=== PATIENT | male | born 1995 | race Caucasian/White ===

== ENCOUNTER 2017-12-09 17:33 | Emergency (ER) | payer OTHER, SELFPAY ==
--- NOTE | 2017-12-09 19:57 | EDPHYS ---
Physician Documentation [facility] Name: Steffen England Age: 22 yrs Sex: Male : 1995 Arrival Date: 12/09/2017 Time: 17:37 Bed 26 Private MD: None, None ED Physician Kirill Mcdonald HPI: 12/09 19:06 This 22 yrs old Male presents to ER via Ambulatory with complaints of Arm snw Pain. 19:06 The patient or guardian complains of pain, that is acute. The complaints affect the snw anterior aspect of right shoulder, right bicep, posterior aspect of right shoulder and right tricep. Context: The problem was sustained at an unknown location. Onset: The symptoms/episode began/occurred 3 day(s) ago, and became persistent. Modifying factors: the symptoms are aggravated by notices more problem on awakening. Associated signs and symptoms: Pertinent positives: aching pain to right shoulder and lower chest. Severity of symptoms: At their worst the symptoms were moderate. The patient has not experienced similar symptoms in the past. The patient has not recently seen a physician. Historical: - Allergies: 17:49 No Known Allergies; aa5 - PMHx: 17:49 None; aa5 - PSHx: 17:50 None; aa5 - Immunization history:: Adult Immunizations up to date. - Social history:: Smoking status: Patient uses tobacco products, denies chronic smoking, but will smoke occasionally. - Ebola Screening: : No symptoms or risks identified at this time. ROS: 19:01 Constitutional: Negative for fever, chills, and weight loss, Eyes: Negative for injury, snw pain, redness, and discharge, ENT: Negative for injury, pain, and discharge, Neck: Negative for injury, pain, and swelling, Respiratory: Negative for shortness of breath, cough, wheezing, and pleuritic chest pain, Abdomen/GI: Negative for abdominal pain, nausea, vomiting, diarrhea, and constipation, Back: Negative for injury and pain, : Negative for injury, bleeding, discharge, and swelling, Skin: Negative for injury, rash, and discoloration, Neuro: Negative for headache, weakness, numbness, tingling, and seizure. 19:01 Cardiovascular: Positive for chest pain. 19:01 MS/extremity: Positive for pain, paresthesias, swelling, of the from right scapular area around to and down right arm. Exam: 19:01 Constitutional: This is a well developed, well nourished patient who is awake, alert, snw and in no acute distress. Head/Face: Normocephalic, atraumatic. Eyes: Pupils equal round and reactive to light, extra-ocular motions intact. Lids and lashes normal. Conjunctiva and sclera are non-icteric and not injected. Cornea within normal limits. Periorbital areas with no swelling, redness, or edema. ENT: Nares patent. No nasal discharge, no septal abnormalities noted. Tympanic membranes are normal and external auditory canals are clear. Oropharynx with no redness, swelling, or masses, exudates, or evidence of obstruction, uvula midline. Mucous membranes moist. Neck: Trachea midline, no thyromegaly or masses palpated, and no cervical lymphadenopathy. Supple, full range of motion without nuchal rigidity, or vertebral point tenderness. No Meningismus. Chest/axilla: Normal chest wall appearance and motion. Nontender with no deformity. No lesions are appreciated. Cardiovascular: Regular rate and rhythm with a normal S1 and S2. No gallops, murmurs, or rubs. Normal PMI, no JVD. No pulse deficits. Respiratory: Lungs have equal breath sounds bilaterally, clear to auscultation and percussion. No rales, rhonchi or wheezes noted. No increased work of breathing, no retractions or nasal flaring. Abdomen/GI: Soft, non-tender, with normal bowel sounds. No distension or tympany. No guarding or rebound. No evidence of tenderness throughout. Back: No spinal tenderness. No costovertebral tenderness. Full range of motion. Skin: Warm, dry with normal turgor. Normal color with no rashes, no lesions, and no evidence of cellulitis. MS/ Extremity: Pulses equal, no cyanosis. Neurovascular intact. Full, normal range of motion. Neuro: Awake and alert, GCS 15, oriented to person, place, time, and situation. Cranial nerves II-XII grossly intact. Motor strength 5/5 in all extremities. Sensory grossly intact. Cerebellar exam normal. Normal gait. Vital Signs: 17:50 BP 130 / 60; Pulse 66; Resp 16 S; Temp 97.9(TE); Pulse Ox 100% on R/A; Weight 58.97 kg aa5 (R); Height 5 ft. 6 in. (167.64 cm) (R); Pain 6/10; 20:00 BP 116 / 75; Pulse 78; Resp 16; Pulse Ox 99% on R/A; rk2 17:50 Body Mass Index 20.98 (58.97 kg, 167.64 cm) aa5 MDM: 18:01 Patient medically screened. snw 19:57 Data reviewed: vital signs, nurses notes. Data interpreted: Pulse oximetry: on room air snw is 100 %. Interpretation: normal. Counseling: I had a detailed discussion with the patient and/or guardian regarding: the historical points, exam findings, and any diagnostic results supporting the discharge/admit diagnosis, radiology results, the need for outpatient follow up, to return to the emergency department if symptoms worsen or persist or if there are any questions or concerns that arise at home. Special discussion: Based on the history and exam findings, there is no indication for further emergent testing or inpatient evaluation. I discussed with the patient/guardian the need to see the primary care provider for further evaluation of the symptoms. 12/09 20:16 Order name: Urine Dipstick--Ancillary (enter results) rg2 12/09 18:01 Order name: Chest Pa And Lat (2 Views) XRAY; Complete Time: 20:15 snw 12/09 18:01 Order name: EKG; Complete Time: 18:02 snw 12/09 18:01 Order name: EKG - Nurse/Tech; Complete Time: 18:30 snw Administered Medications: 20:11 Drug: TORadol 60 mg Route: IM; Site: right deltoid; rk2 20:15 Follow up: Response: No adverse reaction; Given \T\ DC rk2 Disposition: 12/10 16:16 Co-signature as Attending Physician, Kirill Mcdonald MD I agree with the assessment and chet plan of care. Disposition: 12/09/17 19:56 Discharged to Home. Impression: Pain in right shoulder. - Condition is Stable. - Discharge Instructions: Arthralgia, Musculoskeletal Pain, Shoulder Pain, Cryotherapy, [id number], Heat Therapy. - Prescriptions for Diclofenac Sodium 75 mg Oral Tablet Sustained Release - take 1 tablet by ORAL route 2 times per day; 30 tablet. orphenadrine citrate 100 mg Oral Tablet Sustained Release - take 1 tablet by ORAL route 2 times per day As needed; 20 tablet. - Work release form, Medication Reconciliation Form, Thank You Letter, Antibiotic Education, Prescription Opioid Use form. - Follow up: Private Physician; When: 2 - 3 days; Reason: Recheck today's complaints, Continuance of care, Re-evaluation by your physician. Follow up: Emergency Department; When: As needed; Reason: Worsening of condition. Signatures: Dispatcher [employer] EDSC Kirill Mcdonald, Sophy Navarro MD, cha, JAMIL-C VETERINARY PATHOLOGIST-Solw Estela Thurston, RN RN aa5 Isabela Han RN RN rk2 Corrections: (The following items were deleted from the chart) 12/09 20:17 19:56 12/09/2017 19:56 Discharged to Home. Impression: Pain in right shoulder. rk2 Condition is Stable. Forms are Medication Reconciliation Form, Thank You Letter, Antibiotic Education, Prescription Opioid Use. Follow up: Private Physician; When: 2 - 3 days; Reason: Recheck today's complaints, Continuance of care, Re-evaluation by your physician. Follow up: Emergency Department; When: As needed; Reason: Worsening of condition. snw
--- NOTE | 2017-12-09 19:57 | ER ---
Nurse's Notes [facility] Name: Steffen England Age: 22 yrs Sex: Male : 1995 Arrival Date: 12/09/2017 Time: 17:37 Bed 26 Private MD: None, None Diagnosis: Pain in right shoulder Presentation: 12/09 17:48 Presenting complaint: Patient states: intermittent chest pain and palpitations x 1week aa5 ago. Pt also c/o soreness to right arm and intermittent numbness to right arm. Transition of care: patient was not received from another setting of care. Onset of symptoms was November 2017. Risk Assessment: Do you want to hurt yourself or someone else? Patient reports no desire to harm self or others. Initial Sepsis Screen: Does the patient meet any 2 criteria? No. Patient's initial sepsis screen is negative. Does the patient have a suspected source of infection? No. Patient's initial sepsis screen is negative. Care prior to arrival: None. 17:48 Method Of Arrival: Ambulatory aa5 17:48 Acuity: CLEMENTINA 3 aa5 Triage Assessment: 19:05 General: Appears in no apparent distress. slender, well groomed, well developed, well rk2 nourished, Behavior is calm, cooperative. Pain:. Neuro: Level of Consciousness is alert, obeys commands, Oriented to person, place, time, situation. Cardiovascular: Capillary refill < 3 seconds Rhythm is irregular. Respiratory: Airway is patent Respiratory effort is even, unlabored, Respiratory pattern is regular, symmetrical. Derm: Skin is pink, warm \T\ dry. Historical: - Allergies: 17:49 No Known Allergies; aa5 - PMHx: 17:49 None; aa5 - PSHx: 17:50 None; aa5 - Immunization history:: Adult Immunizations up to date. - Social history:: Smoking status: Patient uses tobacco products, denies chronic smoking, but will smoke occasionally. - Ebola Screening: : No symptoms or risks identified at this time. Screenin:30 Abuse screen: Denies threats or abuse. Nutritional screening: No deficits noted. rk2 18:30 Tuberculosis screening: No symptoms or risk factors identified. Fall Risk None rk2 identified. Assessment: 19:14 Reassessment: Pt. taken to xray by wheelchair. rk2 Vital Signs: 17:50 BP 130 / 60; Pulse 66; Resp 16 S; Temp 97.9(TE); Pulse Ox 100% on R/A; Weight 58.97 kg aa5 (R); Height 5 ft. 6 in. (167.64 cm) (R); Pain 6/10; 20:00 BP 116 / 75; Pulse 78; Resp 16; Pulse Ox 99% on R/A; rk2 17:50 Body Mass Index 20.98 (58.97 kg, 167.64 cm) aa5 ED Course: 17:37 Patient arrived in ED. mr 17:37 None, None is Private Physician. mr 17:49 Triage completed. aa5 17:49 Arm band placed on. aa5 17:54 [facility] Quezada [facility]C [facility] snw 17:54 Kirill Mcdonald MD is Attending Physician. snw 18:01 Isabela Han RN is Primary Nurse. rk2 18:30 Patient has correct armband on for positive identification. Bed in low position. Call rk2 light in reach. Adult w/ patient. Adult w/ patient. quality assurance monitor chassis on. Pulse ox on. 19:14 Chest Pa And Lat (2 Views) XRAY Sent. rk2 19:21 Patient moved to radiology via wheelchair. la2 19:21 X-ray completed. Patient tolerated procedure well. la2 19:22 Chest Pa And Lat (2 Views) XRAY In Process Unspecified. EDMS 20:16 No provider procedures requiring assistance completed. Patient did not have IV access rk2 during this emergency room visit. Administered Medications: 20:11 Drug: TORadol 60 mg Route: IM; Site: right deltoid; rk2 20:15 Follow up: Response: No adverse reaction; Given \T\ DC rk2 Intake: Outcome: 19:56 Discharge ordered by . snw 20:16 Discharged to home ambulatory. rk2 20:16 Condition: good 20:16 Discharge instructions given to patient, Prescriptions given X 2. 20:17 Patient left the ED. rk2 Signatures: Dispatcher [employer] EDMS Sophy Quezada FNP-C FNP-Nicole Jones ThurstonEstela, RN RN aa5 Myra Cronin la2 Isabela Han RN RN rk2
[2017-12-09] MEDS ORDERED: KETOROLAC 30 MG/ML INJ ONE (20:10)
--- NOTE | 2017-12-09 20:14 | RAD REPORT ---
EXAM DESCRIPTION: RAD - Chest Pa And Lat (2 Views) - 12/09/2017 7:22 pm CLINICAL HISTORY: Intermittent chest pain, palpitations, chest pain COMPARISON: None. TECHNIQUE: PA and lateral views of the chest were obtained. FINDINGS: The lungs are clear. Heart size is normal and central vasculature is within normal limit s. No pleural effusion or pneumothorax seen. No acute bony finding noted. No aortic abnormality. IMPRESSION: No acute cardiopulmonary process.
[2017-12-09 20:50] LABS: Urine Blood NEGATIVE (NEG); Urine Glucose NEGATIVE (NEG); Urine Protein TRACE (NEG); Urine Specific Gravity >1.030 (1.005-1.030)
--- NOTE | 2017-12-10 06:52 | EKG ---
Test Date: 2017-12-09 Test Time: 18:21:41 Glassblower: NILTON MEASUREMENT RESULTS: Intervals: Rate: 56 IA: 122 QRSD: 94 QT: 412 QTc: 397 Ahmeek: P: 63 IA: 122 QRS: 88 T: 57 INTERPRETIVE STATEMENTS: Sinus bradycardia Otherwise normal ECG No previous ECG available for comparison Electronically Signed On 12-10-17 06:52:04 CDT by Feliciano Rausch
== END 2017-12-09 20:17 | disposition home or self-care (01) ==
LOC: ER 17:33
DX: M25.511 Pain in right shoulder (principal); F17.200 Nicotine dependence, unspecified, uncomplicated
CPT/HCPCS: 71046; 81003; 93005; 96372; 99284

== ENCOUNTER 2018-08-16 20:05 | Emergency (ER) | payer SELFPAY ==
[2018-08-16 20:58] LABS: Absolute Lymphocytes (CBC) 2.5 K/uL (0.7-4.9); Absolute Monocytes 0.5 K/uL (0.1-1.3); Absolute Neutrophil 4.2 K/uL (1.8-8.0); Basophils % 0.9 % (0-1.3); Eosinophils % 1.7 % (0-4.4); Hematocrit 45.2 % (39.6-49.0); Lymphocytes % 33.2 % (15.3-44.8); MPV 8.2 fL (7.6-11.3); Monocytes % 7.1 % (3.3-12.3); RBC Red Blood Cell Count 4.88 M/uL (4.33-5.43)
[2018-08-16 21:01] LABS: Protime INR 1.01
[2018-08-16 21:11] LABS: ALT/SGPT 18 U/L (12-78); AST/SGOT 17 U/L (15-37); Albumin 4.2 g/dL (3.4-5.0); Alkaline Phosphatase 72 U/L (45-117); BUN Blood Urea Nitrogen 12 mg/dL (7-18); Bicarbonate 29 mmol/L (21-32); Bilirubin Direct 0.2 mg/dL (0-0.2); Bilirubin Total 0.7 mg/dL (0.2-1.0); Glucose Level 60 mg/dL (74-106); Potassium 3.7 mmol/L (3.5-5.1); Protein, Total 7.4 g/dL (6.4-8.2); Sodium Level 142 mmol/L (136-145)
[2018-08-16 21:13] LABS: Urine Blood NEGATIVE (NEG); Urine Glucose NEGATIVE (NEG); Urine Protein NEGATIVE (NEG)
[2018-08-16] MEDS ORDERED: NA CHLORIDE 0.9% 1,000 ML ONE (21:18)
[2018-08-16 21:24] LABS: Barbiturates NEGATIVE (NEGATIVE); Benzodiazepines NEGATIVE (NEGATIVE); Cocaine NEGATIVE (NEGATIVE); METHAMPHETAM NEGATIVE (NEGATIVE); Methadone NEGATIVE (NEGATIVE); Opiates NEGATIVE (NEGATIVE); Phencyclidine NEGATIVE (NEGATIVE); THC Cannibis POSITIVE (NEGATIVE)
--- NOTE | 2018-08-16 21:43 | ER ---
Nurse's Notes [facility] Name: Steffen England Age: 22 yrs Sex: Male : 1995 Arrival Date: 08/16/2018 Time: 20:06 Bed 18 Private MD: Diagnosis: Major depressive disorder, recurrent;Suicidal ideations Presentation: 08/16 20:12 Presenting complaint: Mother states: "He has been having suicidal thoughts for accouple jd3 of months now and today it has just gotten worse. he was planning on hanging himself.". Transition of care: patient was not received from another setting of care. Onset of symptoms was August 16, 2018. Risk Assessment: Do you want to hurt yourself or someone else? Patient reports desire/thoughts of hurting themselves or someone else. Provider notified. Initial Sepsis Screen: Does the patient meet any 2 criteria? No. Patient's initial sepsis screen is negative. Does the patient have a suspected source of infection? No. Patient's initial sepsis screen is negative. Care prior to arrival: None. 20:12 Method Of Arrival: Ambulatory jd3 20:12 Acuity: CLEMENTINA 2 jd3 Historical: - Allergies: 20:14 No Known Allergies; jd3 - Home Meds: 20:14 None [Active]; jd3 - PMHx: 20:14 None; jd3 - PSHx: 20:14 None; jd3 - Immunization history:: Adult Immunizations up to date. - Social history:: Smoking status: Patient uses tobacco products, denies chronic smoking, but will smoke occasionally. - Ebola Screening: : Patient negative for fever greater than or equal to 101.5 degrees Fahrenheit, and additional compatible Ebola Virus Disease symptoms. - Family history:: not pertinent. Screenin:33 Abuse screen: Denies threats or abuse. Denies injuries from another. Nutritional ed1 screening: No deficits noted. Tuberculosis screening: No symptoms or risk factors identified. Fall Risk None identified. Assessment: 20:33 General: Appears uncomfortable, Behavior is calm, cooperative. Pain: Pain: Complains of ed1 pain in neck Pain currently is 8 out of 10 on a pain scale. Quality of pain is described as burning, Pain began 2 hours ago. Neuro: Level of Consciousness is awake, alert, obeys commands, Oriented to person, place, time, situation. Cardiovascular: Denies chest pain, Heart tones S1 S2 present. Respiratory: Airway is patent Respiratory effort is even, unlabored, Respiratory pattern is regular, symmetrical, Breath sounds are clear bilaterally. GI: No signs and/or symptoms were reported involving the gastrointestinal system. : No signs and/or symptoms were reported regarding the genitourinary system. EENT: No signs and/or symptoms were reported regarding the EENT system. Derm: Skin is intact, is healthy with good turgor, Skin is dry, Skin is normal, Skin temperature is warm Wound noted neck Wound is abrasion. Musculoskeletal: Circulation, motion, and sensation intact. 22:00 Reassessment: Patient appears in no apparent distress at this time. Patient and/or jd3 family updated on plan of care and expected duration. Pain level reassessed. Patient is alert, oriented x 3, equal unlabored respirations, skin warm/dry/pink. Patient states feeling better. 22:28 Reassessment: Patient appears in no apparent distress at this time. Patient and/or jd3 family updated on plan of care and expected duration. Pain level reassessed. Patient is alert, oriented x 3, equal unlabored respirations, skin warm/dry/pink. pt reported understanding of need for fallow up care. Psych: 20:15 Subjective: Patient's mood is sad, Delusions are denied, Hallucinations are denied jd3 Having thoughts of suicide. Objective: Patient is cooperative, using poor eye contact, Speech is normal, Affect is appropriate. Suicide Risk Assessment: Sad Person Scale: Sex of patient: Male: Score 1 point. Age of patient: Score 1 point if patient 15-34. Depression: Score 1 point if signs of depression are present. Previous Attempt: Score 1 point if patient has previously attempted suicide. Substance Abuse: Score 1 point if patient abuses alcohol or drugs. Rational Thinking: Score 0 point if patient has rational thinking. Social Support: Score 0 if social support is present/available. Organized Plan: Score 1 point if patient had a plan in place. Relationship: Score 1 point if patient is , , , or for a single male Chronic Sickness: Score 0 point if patient does not have a chronic illness, debilitating, or severe disorder. TOTAL POINTS: If total points are 5-6, proposed clinical action is to strongly consider hospitalization, depending upon confidence in the follow-up arrangement. Implement suicide precautions. Patient uses marijuana. 20:30 Interventions: Removed personal items and placed in bag. Patient placed in hospital jd3 gown. Searched person for dangerous items. Urine collected and sent for urine drug test. Belonging list filled out. Safety Checks: Personal items have been removed. Door is open. Visitors are present. 22:15 Safety Checks: Personal items have been removed. Door is open. Visitors are present. [facility] 22:24 Safety Checks: Personal items have been removed. Door is open. Visitors are present. [facility] 22:25 Interventions: Patient reassessed during use of restraints. Patient is physically safe. [facility] 22:25 Commitment: pt discharged. [facility] Vital Signs: 20:14 BP 131 / 75; Pulse 80; Resp 17 S; Temp 98.5(O); Pulse Ox 100% on R/A; Weight 54.43 kg j (R); Height 5 ft. 8 in. (172.72 cm) (R); Pain 8/10; 20:14 Body Mass Index 18.25 (54.43 kg, 172.72 cm) [facility] ED Course: 20:06 Patient arrived in ED. am2 20:11 Kirill Mcdonald MD is Attending Physician. chet 20:13 Triage completed. jd3 20:18 Arm band placed on. jd3 20:32 Brunilda Diamond, SHIRA is Primary Nurse. ed1 20:33 Patient has correct armband on for positive identification. Placed in gown. Bed in low ed1 position. Call light in reach. Adult w/ patient. Valuables inventory done. See valuables checklist. Sent with security. 20:45 Safety Checks: Personal items have been removed. The door is open or patient has been ed1 placed in a hallway bed/chair. A family member and/or friend is present and encouraged to stay. Sitter present at this time. 20:45 Safety checks: Items removed: yes. Door open/sign placed on door: yes. Family/friend ar5 present: no. Sitter present: Yes. 21:00 Safety Checks: Personal items have been removed. The door is open or patient has been ed1 placed in a hallway bed/chair. A family member and/or friend is present and encouraged to stay. Sitter present at this time. 21:11 Initial lab(s) drawn, by ED staff, sent to lab. Urine collected: clean catch specimen, ed1 EKG done, by ED staff, reviewed by Kirill Mcdonald MD. Inserted saline lock: 20 gauge in right antecubital area, using aseptic technique. Blood collected. 21:15 Safety Checks: Personal items have been removed. The door is open or patient has been ed1 placed in a hallway bed/chair. A family member and/or friend is present and encouraged to stay. Sitter present at this time. 21:30 Safety Checks: Personal items have been removed. The door is open or patient has been ed1 placed in a hallway bed/chair. A family member and/or friend is present and encouraged to stay. Sitter present at this time. 21:59 Primary Nurse role handed off by Brunilda Diamond RN ed1 22:09 Raul Austin, SHIRA is Primary Nurse. jd3 22:26 No provider procedures requiring assistance completed. IV discontinued, intact, jd3 bleeding controlled, No redness/swelling at site. Pressure dressing applied. Administered Medications: 21:09 Drug: NS 0.9% 1000 ml Route: IV; Rate: 1 bolus; Site: right antecubital; ed1 22:00 Follow up: Response: No adverse reaction; IV Status: Completed infusion jd3 Outcome: 21:42 Discharge ordered by . chet 22:26 Discharged to home ambulatory, with family. jd3 22:26 Condition: stable 22:26 Discharge instructions given to patient, family, Instructed on discharge instructions, follow up and referral plans. Demonstrated understanding of instructions, follow-up care. 22:30 Patient left the ED. jd3 Signatures: Kirill Mcdonald MD MD cha Riggs, Erika, RN RN ed1 Casandra Palomino am2 Raul Austin RN RN jd3 Katie Manning ar5 Corrections: (The following items were deleted from the chart) 20:18 20:12 Presenting complaint: Mother states: "He has been having suicidal thoughts for jd3 accouple of months now and today it has just gotten worse." jd3 20:46 20:33 Pain: ed1 ed1 20:47 20:33 Derm: Skin is intact, is healthy with good turgor, Skin is dry, Skin is normal, ed1 Skin temperature is warm ed1
--- NOTE | 2018-08-16 21:43 | EDPHYS ---
Physician Documentation [facility] Name: Steffen England Age: 22 yrs Sex: Male : 1995 Arrival Date: 08/16/2018 Time: 20:06 Bed 18 Private MD: ED Physician Kirill Mcdonald HPI: 08/16 21:04 This 22 yrs old Male presents to ER via Ambulatory with complaints of chet Suicidal Ideation, Depression. 21:04 The patient presents to the emergency department with depression, suicide ideation. chet Onset: The symptoms/episode began/occurred 1 week(s) ago. Past psychiatric history: Prior diagnosis: depression. Associated signs and symptoms: The patient has no apparent associated signs or symptoms. Severity of symptoms: At their worst the symptoms were mild in the emergency department the symptoms are unchanged. The patient has experienced similar episodes in the past, a few times. Historical: - Allergies: 20:14 No Known Allergies; jd3 - Home Meds: 20:14 None [Active]; jd3 - PMHx: 20:14 None; jd3 - PSHx: 20:14 None; jd3 - Immunization history:: Adult Immunizations up to date. - Social history:: Smoking status: Patient uses tobacco products, denies chronic smoking, but will smoke occasionally. - Ebola Screening: : Patient negative for fever greater than or equal to 101.5 degrees Fahrenheit, and additional compatible Ebola Virus Disease symptoms. - Family history:: not pertinent. ROS: 21:04 Constitutional: Negative for fever, chills, and weight loss, Eyes: Negative for injury, chet pain, redness, and discharge, ENT: Negative for injury, pain, and discharge, Neck: Negative for injury, pain, and swelling, Cardiovascular: Negative for chest pain, palpitations, and edema, Respiratory: Negative for shortness of breath, cough, wheezing, and pleuritic chest pain, Abdomen/GI: Negative for abdominal pain, nausea, vomiting, diarrhea, and constipation, Back: Negative for injury and pain, : Negative for injury, bleeding, discharge, and swelling, MS/Extremity: Negative for injury and deformity, Skin: Negative for injury, rash, and discoloration, Neuro: Negative for headache, weakness, numbness, tingling, and seizure, Allergy/Immunology: Negative for hives, rash, and allergies, Endocrine: Negative for neck swelling, polydipsia, polyuria, polyphagia, and marked weight changes, Hematologic/Lymphatic: Negative for swollen nodes, abnormal bleeding, and unusual bruising. 21:04 Psych: Positive for depression. Exam: 21:04 Constitutional: This is a well developed, well nourished patient who is awake, alert, chet and in no acute distress. Head/Face: Normocephalic, atraumatic. Eyes: Pupils equal round and reactive to light, extra-ocular motions intact. Lids and lashes normal. Conjunctiva and sclera are non-icteric and not injected. Cornea within normal limits. Periorbital areas with no swelling, redness, or edema. ENT: Nares patent. No nasal discharge, no septal abnormalities noted. Tympanic membranes are normal and external auditory canals are clear. Oropharynx with no redness, swelling, or masses, exudates, or evidence of obstruction, uvula midline. Mucous membranes moist. Neck: Trachea midline, no thyromegaly or masses palpated, and no cervical lymphadenopathy. Supple, full range of motion without nuchal rigidity, or vertebral point tenderness. No Meningismus. Chest/axilla: Normal chest wall appearance and motion. Nontender with no deformity. No lesions are appreciated. Cardiovascular: Regular rate and rhythm with a normal S1 and S2. No gallops, murmurs, or rubs. Normal PMI, no JVD. No pulse deficits. Respiratory: Lungs have equal breath sounds bilaterally, clear to auscultation and percussion. No rales, rhonchi or wheezes noted. No increased work of breathing, no retractions or nasal flaring. Abdomen/GI: Soft, non-tender, with normal bowel sounds. No distension or tympany. No guarding or rebound. No evidence of tenderness throughout. Back: No spinal tenderness. No costovertebral tenderness. Full range of motion. Male : Normal genitalia with no discharge or lesions. Skin: Warm, dry with normal turgor. Normal color with no rashes, no lesions, and no evidence of cellulitis. MS/ Extremity: Pulses equal, no cyanosis. Neurovascular intact. Full, normal range of motion. Neuro: Awake and alert, GCS 15, oriented to person, place, time, and situation. Cranial nerves II-XII grossly intact. Motor strength 5/5 in all extremities. Sensory grossly intact. Cerebellar exam normal. Normal gait. Psych: Awake, alert, with orientation to person, place and time. Behavior, mood, and affect are within normal limits. Vital Signs: 20:14 BP 131 / 75; Pulse 80; Resp 17 S; Temp 98.5(O); Pulse Ox 100% on R/A; Weight 54.43 kg jd3 (R); Height 5 ft. 8 in. (172.72 cm) (R); Pain 8/10; 20:14 Body Mass Index 18.25 (54.43 kg, 172.72 cm) jd3 MDM: 20:11 Patient medically screened. [facility] 21:06 Data reviewed: vital signs, nurses notes, lab test result(s), EKG. [facility] 08/16 20:12 Order name: Acetaminophen; Complete Time: 21:[address] [facility] 08/16 20:12 Order name: Basic Metabolic Panel; Complete Time: 21:[address] [facility] 08/16 20:12 Order name: CBC with Diff; Complete Time: 21:[address] [facility] 08/16 20:12 Order name: ETOH Level; Complete Time: 21:[address] [facility] 08/16 20:12 Order name: Hepatic Function; Complete Time: 21:[address] [facility] 08/16 20:12 Order name: PT-INR; Complete Time: 21:[address] [facility] 08/16 20:12 Order name: Ptt, Activated; Complete Time: 21:[address] [facility] 08/16 20:12 Order name: Salicylate; Complete Time: 21:[address] [facility] 08/16 20:12 Order name: Urine Drug Screen; Complete Time: 21:[address] [facility] 08/16 20:12 Order name: EKG; Complete Time: 20:[address] [facility] 08/16 20:12 Order name: EKG - Nurse/Tech; Complete Time: 21:[address] [facility] 08/16 20:12 Order name: IV Saline Lock; Complete Time: 20:[address] [facility] 08/16 21:09 Order name: Urine Dipstick--Ancillary (enter results); Complete Time: 21:41 [facility] 08/16 20:12 Order name: Labs collected and sent; Complete Time: 20:[address] [facility] 08/16 20:12 Order name: Urine Dipstick-Ancillary (obtain specimen); Complete Time: 21:[address] [facility] 08/16 21:41 Order name: PO challenge: juice; Complete Time: 22:[address] [facility] Administered Medications: 21:09 Drug: NS 0.9% 1000 ml Route: IV; Rate: 1 bolus; Site: right antecubital; ed1 22:00 Follow up: Response: No adverse reaction; IV Status: Completed infusion jd3 Disposition: 08/16/18 21:42 Discharged to Home. Impression: Major depressive disorder, recurrent, Suicidal ideations. - Condition is Stable. - Discharge Instructions: Suicidal Feelings: How to Help Yourself, Helping Someone Who is Suicidal, Stress and Stress Management. - Medication Reconciliation Form, Thank You Letter, Antibiotic Education, Prescription Opioid Use form. - Work release form (08/16/18 22:34). jd3 - Follow up: Private Physician; When: 2 - 3 days; Reason: Recheck today's complaints, Continuance of care, Re-evaluation by your physician. - Problem is new. - Symptoms have improved. Signatures: Dispatcher [employer] EDMS Kirill Mcdonald MD MD cha Riggs, Erika, RN RN ed1 Raul Austin RN RN jd3 Corrections: (The following items were deleted from the chart) 22:30 21:42 08/16/2018 21:42 Discharged to Home. Impression: Major depressive disorder, jd3 recurrent; Suicidal ideations. Condition is Stable. Discharge Instructions: Suicidal Feelings: How to Help Yourself, Helping Someone Who is Suicidal, Stress and Stress Management. Forms are Medication Reconciliation Form, Thank You Letter, Antibiotic Education, Prescription Opioid Use. Follow up: Private Physician; When: 2 - 3 days; Reason: Recheck today's complaints, Continuance of care, Re-evaluation by your physician. Problem is new. Symptoms have improved. chet
--- NOTE | 2018-08-18 10:14 | EKG ---
Test Date: 2018-08-16 Test Time: 20:57:06 [employer]: [place] MEASUREMENT RESULTS: Intervals: Rate: 72 ND: 102 QRSD: 90 QT: 374 QTc: 409 [place]: P: 54 ND: 102 QRS: 86 T: 65 INTERPRETIVE STATEMENTS: Sinus rhythm with short ND Otherwise normal ECG Compared to ECG 12/09/2017 18:21:41 Short ND interval now present Sinus bradycardia no longer present Electronically Signed On 08-18-18 10:12:37 [employer]NAGER [employer] by Balwinder Fragoso
== END 2018-08-16 22:30 | disposition home or self-care (01) ==
LOC: ER 20:05
DX: F33.9 Major depressive disorder, recurrent, unspecified (principal); Z72.0 Tobacco use
CPT/HCPCS: 36415; 80048; 80076; 80307; 80320; 80329; 81003; 85025; 85610; 85730; 93005; 96360; 99285; J7030